=== PATIENT | female | born 1930 | race Caucasian/White ===

== ENCOUNTER 2017-01-17 19:08 | Inpatient (IN) | payer OTHER ==
[2017-01-17 19:42] LABS: BASOPHIL 1.1 % (0-2.0); EOSINOPHIL 0.1 % (0-4.5); MCH 31.4 pg (25.7-33.7); MCHC 34.2 g/dl (32.0-36.0); MEAN CELL VOLUME 91.7 fl (80-96); MEAN PLT VOLUME 8.3 fl (7.5-11.1); NEUTROPHILS 75.7 % (42.8-82.8); PLATELET COUNT 429 K/MM3 (134-434); RDW 12.9 % (11.6-15.6); WHITE BLOOD COUNT 10.8 K/mm3 (4.0-10.8)
--- NOTE | 2017-01-17 19:54 | PDOC ---
History of Present Illness - General History Source: Patient Exam Limitations: No Limitations - History of Present Illness Initial Comments: 01/17/17 20:55 Patient is a 86 year old female presenting to the ED s/p Fall that occurred 1 hour prior to arrival to ED. Patient reports feeling a sudden onset of dizziness followed by losing her balance causing her to fall 1 hour ago. Patient states the only medication she is currently on is for HTN, which she forgot to take today. Denies sweating, headache. Denies nausea, vomiting. Denies loss of consciousness , chest pain. Denies any other symptoms. PAST MEDICAL HISTORY: HTN PAST SURGICAL HISTORY: no significant history FAMILY HISTORY: no pertinent history SOCIAL HISTORY: Lives in [facility] assisted living and is Retired. Previous smoker (). No alcohol. No illicit drugs. MEDICATIONS: reviewed ALLERGIES: No allergies 01/17/17 21:57 <Chepe Serra - Last Filed: 01/17/17 21:57> - General History Source: Patient, Family Exam Limitations: No Limitations - History of Present Illness Initial Comments: A portion of this note was documented by scribe services under my direction. I have reviewed the details of the note, within reason, and agree with the documentation. The case summary and management plan written by me. 01/17/17 20:59 This is a 86-year-old female who had a fall at the [facility] and was transferred to this post fall. Patient said that she felt dizzy prior to the fall but was unable to describe the dizziness as a spinning sensation versus a passing out sensation. On arrival patient had a systolic blood pressure of 88 patient was given a 500 mL bolus with improvement of her blood pressure to systolic of 100 patient's EKG showed a junctional rhythm but otherwise no acute ST-T wave changes and an inferior wall NM. With some mild ST depression 1 and aVL. Patient has Q waves inferiorly but this most likely is the source of her elevated troponin Patient's chest x-ray showed no acute pathology. Patient had lab work done that showed a sodium of 128, a glucose of 167 and an elevated troponin of 9.5. Discussed with Dr. Mccauley patient will be admitted to [facility] cardiac ICU Patient here in the emergency room though is stable and denies any chest pain or shortness of breath or any other complaints at this time. When patient fell she did cut 2 of the fingers on her hand and sustained an elbow abrasion <Madhavi Sheffield I - Last Filed: 01/17/17 22:24> - General Chief Complaint: Lightheaded Stated Complaint: DIZZY,FALL Time Seen by Provider: 01/17/17 19:11 Past History <Chepe Serra - Last Filed: 01/17/17 21:57> - Past Medical History HTN: Yes - Psycho/Social/Smoking Cessation Hx Suicidal Ideation: No Smoking History: Former smoker Have you smoked in the past 12 months: No If you are a former smoker, when did you quit?: 1989 Information on smoking cessation initiated: No Hx Alcohol Use: No Drug/Substance Use Hx: No Substance Use Type: Alcohol <Madhavi Sheffield I - Last Filed: 01/17/17 22:24> - Past Medical History Allergies/Adverse Reactions: Allergies Allergy/AdvReac Type Severity Reaction Status Date / Time No Known Allergies Allergy Verified 01/17/17 19:09 Home Medications: Ambulatory Orders Aspirin [ASA -] 0 mg PO DAILY 01/17/17 Atenolol [Tenormin -] 0 mg PO DAILY 01/17/17 Diltiazem HCl [Cartia Xt] 0 mg PO DAILY 01/17/17 Levothyroxine [Synthroid -] 0 mcg PO DAILY 01/17/17 Pravastatin Sodium 0 mg PO DAILY 01/17/17 Review of Systems - Review of Systems Able to Perform ROS?: Yes Comments:: 01/17/17 20:55 General: No fevers or chills, no weakness, no weight loss HEENT: No change in vision. No sore throat, No ear pain CardioVascular: No chest pain or shortness of breath Respiratory:No cough, or wheezing. Gastrointestinal: no nausea, vomiting, diarrhea or constipation, No rectal bleeding Genitourinary: No dysuria, hematuria, or frequency Musculoskeletal: + Ringer finger laceration. + Middle finger laceration. No joint or muscle pain or swelling Neurologic: No headache, vertigo, dizziness or loss of consciousness Psychiatric: nor depression Skin: No rashes or easy bruising Endocrine: no increased thirst or abnormal weight change Allergic: no skin or latex allergy All other systems reviewed and normal All Other Systems: Reviewed and Negative <Chepe Serra - Last Filed: 01/17/17 21:57> *Physical Exam - Vital Signs Last Vital Signs Temp Pulse Resp BP Pulse Ox 100.7 F H 84 18 100/65 96 01/17/17 19:41 01/17/17 20:32 01/17/17 20:32 01/17/17 20:32 01/17/17 20:32 - Physical Exam Comments: 01/17/17 20:57 GENERAL: The patient is awake, alert, and fully oriented, in no acute distress. HEAD: Normal with no signs of trauma. EYES: Pupils equal, round and reactive to light, extraocular movements intact, sclera anicteric, conjunctiva clear. EXTREMITIES: + Ring finger 1 cm laceration. Middle phalanx palmar side. No active bleeding. + Middle finger 1 cm laceration. Middle phalanx palmar side. Normal range of motion, no edema. NEUROLOGICAL: Normal speech, normal gait. PSYCH: Normal mood, normal affect. SKIN: Warm, Dry, normal turgor, no rashes or lesions noted. <Chepe Serra - Last Filed: 01/17/17 21:57> - Vital Signs Last Vital Signs Temp Pulse Resp BP Pulse Ox 100.7 F H 84 18 86/55 96 01/17/17 19:41 01/17/17 19:08 01/17/17 19:08 01/17/17 19:08 01/17/17 19:08 <Madhavi Sheffield I - Last Filed: 01/17/17 22:24> ED Treatment Course - LABORATORY CBC & Chemistry Diagram: 01/17/17 19:20 01/17/17 19:20 - ADDITIONAL ORDERS Additional order review: Laboratory Results 01/17/17 19:20 Sodium 128 L Potassium 4.0 Chloride 97 L Carbon Dioxide 20 L Anion Gap 11 BUN 40 H Creatinine 2.0 H Creat Clearance w eGFR 23.51 Random Glucose 167 H Calcium 9.5 Total Bilirubin 0.8 AST 71 H ALT 30 Alkaline Phosphatase 91 Creatine Kinase 342 H Creatine Kinase Index 10.5 H* CK-MB (CK-2) 36.2 H Troponin I 9.50 H* Total Protein 6.7 Albumin 4.1 01/17/17 19:20 RBC 4.55 MCV 91.7 MCHC 34.2 RDW 12.9 MPV 8.3 Neutrophils % 75.7 Lymphocytes % 14.8 Monocytes % 8.3 Eosinophils % 0.1 Basophils % 1.1 <Chepe Serra - Last Filed: 01/17/17 21:57> - LABORATORY CBC & Chemistry Diagram: 01/17/17 19:20 01/17/17 19:20 - ADDITIONAL ORDERS Additional order review: 01/17/17 19:20 RBC 4.55 MCV 91.7 MCHC 34.2 RDW 12.9 MPV 8.3 Neutrophils % 75.7 Lymphocytes % 14.8 Monocytes % 8.3 Eosinophils % 0.1 Basophils % 1.1 - RADIOLOGY Radiology Studies Ordered: Category Date Time Status HEAD CT WITHOUT CONTRAST [CT] Stat CT Scan 01/17/17 19:28 Ordered CHEST X-RAY PORTABLE* [RAD] Stat Radiology 01/17/17 19:29 Ordered <Madhavi Sheffield I - Last Filed: 01/17/17 22:24> Medical Decision Making - Critical Care Time Total Critical Care Time (minutes): 45 Critical Care Statement: The care of this patient involved high complexity decision making to prevent further life threatening deterioration of the patient 's condition and/or to evaluate & treat vital organ system(s) failure or risk of failure. <Madhavi Sheffield I - Last Filed: 01/17/17 22:24> *DC/Admit/Observation/Transfer - Attestations Scribe Attestion: 01/17/17 20:58 Documentation prepared by Chepe Serra, acting as medical economics consultant for Madhavi Sheffield MD. <Chepe Serra - Last Filed: 01/17/17 21:57> - Discharge Dispostion Admit: Yes <Madhavi Sheffield I - Last Filed: 01/17/17 22:24> Diagnosis at time of Disposition: Acute NM Qualifiers: Myocardial infarction ST status: non-ST elevation myocardial infarction Qualified Code(s): I21.4 - Non-ST elevation (NSTEMI) myocardial infarction - Discharge Dispostion Condition at time of disposition: Stable
[2017-01-17 19:58] LABS: ALBUMIN 4.1 g/dl (3.5-5.0); ALK PHOS 91 U/L (32-92); ANION GAP 11 (8-16); BILIRUBIN,TOTAL 0.8 mg/dl (0.2-1.0); CALCIUM 9.5 mg/dl (8.4-10.2); CO2 20 mmol/L (22-28); CPK 342 IU/L (26-192); GLUCOSE,RANDOM 167 mg/dl (74-106); SGOT/AST 71 U/L (10-42); SGPT/ALT 30 U/L (10-40); TOT PROT 6.7 g/dl (6.4-8.3)
[2017-01-17] MEDS ORDERED: SODIUM CHLORIDE 500 ML IV STA (20:58)
[2017-01-17] MEDS ORDERED: HEPARIN INFUSION - 500 ML IVPB ONE (21:41)
[2017-01-17] MEDS ORDERED: ASPIRIN 81 MG CHEWABLE TABLETS ONE (21:41)
[2017-01-17 22:05] LABS: INR 1.01 (0.82-1.09); PROTHROMBIN TIME (PATIENT) 11.3 SEC (10.2-13.0)
--- NOTE | 2017-01-17 22:11 | HP ---
Admitting History and Physical - Admission History Source: Family Member Limitations to Obtaining History: Dementia <Madhavi Sheffield I - Last Filed: 01/17/17 23:42> - Admission Chief Complaint: fever, and fall, weakness History of Present Illness: 86 yo female who recently moved from [place], was seen by me for the first time 2 days ago for medication refills and complaints of rhinorrhea.. The patient ran out of her medications approximately 1 week ago. Her medications consist of Atenolol 50 mg daiy, Cartia XT 240 mg daily, Pravastatin 40 mg daily , and Synthroid 88 mcg daily. I saw the patient again today for complaints of not feeling well, lightheadedness and vomiting. The blood pressure during my examination was 140/80 mm hg and I advised the patient to take her daily dose of Atenolol. Later on during the afternoon the patient fell and ambulance was activated. There was no h/o head injury or loss of consciousness. In the ER the patient was found to be hypotensive with fever and elevated troponins. 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 Cardiovascular: Yes: HTN Gastrointestinal: Yes: Other (vomiting billious contents) Reproductive: Yes: Postmenopausal Musculoskeletal: Yes: Osteoarthritis Endocrine: Yes: Hypothyroidism - Past Surgical History Past Surgical History: Yes: None - Smoking History Smoking history: Former smoker Have you smoked in the past 12 months: No If you are a former smoker, when did you quit?: 1989 - Alcohol/Substance Use Hx Alcohol Use: No - Social History ADL: Support Services ([facility]) <Kathy Mccauley - Last Filed: 01/18/17 13:56> Home Medications <Madhavi Sheffield I - Last Filed: 01/17/17 23:42> <Kathy Mccauley - Last Filed: 01/18/17 13:56> - Allergies Allergies/Adverse Reactions: Allergies Allergy/AdvReac Type Severity Reaction Status Date / Time No Known Allergies Allergy Verified 01/17/17 19:09 - Home Medications Home Medications: Ambulatory Orders Aspirin [ASA -] 0 mg PO DAILY 01/17/17 Atenolol [Tenormin -] 0 mg PO DAILY 01/17/17 Diltiazem HCl [Cartia Xt] 0 mg PO DAILY 01/17/17 Levothyroxine [Synthroid -] 0 mcg PO DAILY 01/17/17 Pravastatin Sodium 0 mg PO DAILY 01/17/17 Family Disease History - Family Disease History Family History: Unable to Obtain <Kathy Mccauley - Last Filed: 01/18/17 13:56> Review of Systems - Review of Systems Constitutional: reports: Fever, Lethargy Eyes: reports: No Symptoms HENT: reports: Other (rhinorrhea) Neck: reports: No Symptoms Cardiovascular: reports: Other (weakness) Respiratory: reports: No Symptoms Gastrointestinal: reports: Vomiting Genitourinary: reports: No Symptoms Musculoskeletal: reports: Muscle Weakness Integumentary: reports: No Symptoms Neurological: reports: Dizziness Psychiatric: reports: Other (forgetful) <Kathy Mccauley - Last Filed: 01/18/17 13:56> Physical Examination Vital Signs: Vital Signs Temperature 100.7 F H 01/17/17 19:41 Pulse Rate 85 01/17/17 22:37 Respiratory Rate 20 01/17/17 22:37 Blood Pressure 89/64 01/17/17 22:37 O2 Sat by Pulse Oximetry (%) 95 01/17/17 22:37 Labs: CBC, BMP 01/17/17 19:20 01/17/17 19:20 <Madhavi Sheffield I - Last Filed: 01/17/17 23:42> Vital Signs: Vital Signs Temperature 100.7 F H 01/17/17 19:41 Pulse Rate 84 01/17/17 21:17 Respiratory Rate 17 01/17/17 21:17 Blood Pressure 94/61 01/17/17 21:17 O2 Sat by Pulse Oximetry (%) 95 01/17/17 21:17 Constitutional: Yes: No Distress, Calm Eyes: Yes: Conjunctiva Clear, EOM Intact HENT: Yes: Atraumatic, Normocephalic Neck: Yes: Supple, Trachea Midline Respiratory: Yes: Regular, CTA Bilaterally Gastrointestinal: Yes: Normal Bowel Sounds, Soft ...Rectal Exam: Yes: Deferred Renal/: Yes: WNL Breast(s): Yes: WNL Extremities: No: Calf Tenderness Edema: No Integumentary: Yes: Other (solar hyperkeratosis) Neurological: Yes: Alert, Oriented Labs: CBC, BMP 01/17/17 19:20 01/17/17 19:20 <Kathy Mccauley - Last Filed: 01/18/17 13:56> Imaging - Results Chest X-ray: Other (AP film read by me, no pleural effusion, no infiltrate, no cardiomegaly) EKG: Other (Jan 14- Junctional rhythm at 83 b/min, Q in III, and V1, poor R wave progression, QRS axis at 0, non specific ST-T) <Kathy Mccauley - Last Filed: 01/18/17 13:56> Problem List - Problems (1) Acute SC Assessment/Plan: telemetry observation cariac enzymes serially EKG's serially ECHO in am Code(s): I21.3 - ST ELEVATION (STEMI) MYOCARDIAL INFARCTION OF [facility] SITE Qualifiers: Myocardial infarction ST status: non-ST elevation myocardial infarction Qualified Code(s): I21.4 - Non-ST elevation (NSTEMI) myocardial infarction (2) Fever Assessment/Plan: Tylenol, IV fluids Code(s): R50.9 - FEVER, UNSPECIFIED (3) HTN (hypertension) Assessment/Plan: developed hypotension while on Atenolol possibly due to fever or cardiac event Code(s): I10 - ESSENTIAL (PRIMARY) HYPERTENSION <Kathy Mccauley - Last Filed: 01/18/17 13:56>
[2017-01-17] MEDS ORDERED: ASPIRIN 81 MG CHEWABLE TABLETS PO ONE (22:18)
[2017-01-17] MEDS ORDERED: ATENOLOL 25 MG TABLET (FP) PO ONE (22:18)
[2017-01-17] MEDS ORDERED: METOPROLOL TARTRATE 25 MG TABLET (FP) PO ONE (22:24)
[2017-01-17] MEDS ORDERED: ATENOLOL 50 MG TABLET (FP) ONE (22:34)
--- NOTE | 2017-01-18 00:05 | CONSULT ---
Consult Consult Specialty:: Pulmonary critical care Reason for Consultation:: NSTEMI - History of Present Illness Chief Complaint: Dizziness History of Present Illness: Patient is a 86 year old female with h/o HTN who presented to [facility] ED after she sustained a fall (no LOC) and was brought in for evaluation. Pt reports sudden onset of dizziness prior to fall, also reports n/v couple of days ago. Initial labs notable for Troponin of 9.5, CK-MB 36, Na 128, Cr 2 ( unknown baseline). EKG with no ST elevations. Head CT negative. She was initially hypotensive with SBP of 80s, was given 500cc bolus of NS with improvement in her BP. Pt was given 81mg of ASA and transferred to [facility] ICU for further management. On arrival to ICU pt awake, in no distress with no complaints. Stable vital signs. Placed on supplemental O2. Repeat labs pending. 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 Cardio/Vascular: Yes: HTN - Alcohol/Substance Use Hx Alcohol Use: No - Smoking History Smoking history: Former smoker Have you smoked in the past 12 months: No If you are a former smoker, when did you quit?: 1989 Home Medications - Allergies Allergies/Adverse Reactions: Allergies Allergy/AdvReac Type Severity Reaction Status Date / Time No Known Allergies Allergy Verified 01/17/17 19:09 - Home Medications Home Medications: Ambulatory Orders Aspirin [ASA -] 0 mg PO DAILY 01/17/17 Atenolol [Tenormin -] 0 mg PO DAILY 01/17/17 Diltiazem HCl [Cartia Xt] 0 mg PO DAILY 01/17/17 Levothyroxine [Synthroid -] 0 mcg PO DAILY 01/17/17 Pravastatin Sodium 0 mg PO DAILY 01/17/17 Review of Systems - Review of Systems Cardiovascular: reports: No Symptoms Gastrointestinal: reports: Nausea, Vomiting Physical Exam Vital Signs: Vital Signs Temperature 100.7 F H 01/17/17 19:41 Pulse Rate 85 01/17/17 22:37 Respiratory Rate 20 01/17/17 22:37 Blood Pressure 89/64 01/17/17 22:37 O2 Sat by Pulse Oximetry (%) 95 01/17/17 22:37 Problem List - Problems (1) Acute DE Code(s): I21.3 - ST ELEVATION (STEMI) MYOCARDIAL INFARCTION OF [facility] SITE Qualifiers: Myocardial infarction ST status: non-ST elevation myocardial infarction Qualified Code(s): I21.4 - Non-ST elevation (NSTEMI) myocardial infarction Assessment/Plan NSTEMI Hyponatremia likely hypovolemic hyponatremia in the setting of decreased PO intake Hypothyroidism Renal insufficiency, Cr elevated at 2. Unknown baseline. Likely prerenal -cards consult in AM -daily ASA -daily statin -hold off on BB given relative hypotension -consider TTE -supplemental O2 -morphine for chest pain if need be -trend troponin -recheck BMP to f/u on Na and Cr post fluids -will check urine lytes and renal US if worsening renal function -restart synthroid in AM (confirm dose) -heparin SubQ for PPx -no indication for pepcid GOLD [facility] Critical Care time: 35 minutes
[2017-01-18 00:20] VITALS: BMI 23.1
[2017-01-18] MEDS ORDERED: HEPARIN NA (PORCINE) 5,000 UNITS/ML 1ML VIAL SQ SCH (00:45)
[2017-01-18] MEDS ORDERED: ATORVASTATIN CA 10 MG TABLET (FP) PO SCH ×2 (01:00→22:00)
[2017-01-18 02:01] LABS: ANION GAP 14 (8-16); CALCIUM 8.6 mg/dL (8.5-10.1); CO2 21 mmol/L (21-32); CREATININE 1.5 mg/dL (0.55-1.02); GLUCOSE,RANDOM 118 mg/dL (74-106)
[2017-01-18 02:38] LABS: TROPONIN I 8.03 ng/ml (0.00-0.05)
[2017-01-18] MEDS: HEPARIN NA (PORCINE) 5,000 UNITS/ML 1ML VIAL SQ SCH ×3 (02:53→21:30)
[2017-01-18] MEDS: ATORVASTATIN CA 10 MG TABLET (FP) PO SCH ×2 (02:53→21:46)
--- NOTE | 2017-01-18 07:28 | PN ---
Physical Exam: SUBJECTIVE: Patient seen and examined. Pleasant, comfortable, no complaints. OBJECTIVE: Vital Signs Period Temp Pulse Resp BP Sys/Gerber Pulse Ox Last 24 Hr 97.2 F-97.4 F 80-84 18-20 101-140/66-78 95 Intake & Output 01/15/17 01/16/17 01/17/17 01/18/17 23:59 23:59 23:59 23:59 Intake Total 100 Balance 100 Weight 64.949 kg 64.949 kg GENERAL: The patient is awake, alert, and fully oriented, in no acute distress. HEAD: Normal with no signs of trauma. EYES: PERRL, extraocular movements intact, sclera anicteric, conjunctiva clear. No ptosis. ENT: Ears normal, nares patent, oropharynx clear without exudates, moist mucous membranes. NECK: Trachea midline, full range of motion, supple. LUNGS: Breath sounds equal, clear to auscultation bilaterally, no wheezes, no crackles, no accessory muscle use. HEART: Regular rate and rhythm, S1, S2 without murmur, rub or gallop. ABDOMEN: Soft, nontender, nondistended, normoactive bowel sounds, no guarding, no rebound, no hepatosplenomegaly, no masses. EXTREMITIES: 2+ pulses, warm, well-perfused, no edema. NEUROLOGICAL: Cranial nerves II through XII grossly intact. Normal speech, gait not observed.Full strength in all extremities. PSYCH: Normal mood, normal affect. SKIN: Warm, dry, normal turgor, no rashes or lesions noted Laboratory Results - last 24 hr 01/18/17 01/18/17 01:00 01:00 Sodium 134 L Potassium 3.8 Chloride 99 Carbon Dioxide 21 Anion Gap 14 BUN 43 H Creatinine 1.5 H Random Glucose 118 H Calcium 8.6 Creatine Kinase 314 H Creatine Kinase Index 6.3 H* CK-MB (CK-2) 19.871 H Troponin I 8.03 H* Active Medications Generic Name Dose Route Start Last Admin Trade Name Freq PRN Reason Stop Dose Admin Atorvastatin Calcium 10 mg 01/18/17 02:30 01/18/17 02:53 Lipitor - PO 10 mg HS EDSON Administration Heparin Sodium (Porcine) 5,000 unit 01/18/17 02:30 01/18/17 02:53 Heparin - SQ 5,000 unit BID EDSON Administration Pneumococcal 13-Valent Conj Vacc 0.5 ml 01/18/17 00:20 Prevnar 13 Syringe - IM 01/18/17 00:21 .ONCE ONE EKG from last night: ACCELERATED JUNCTIONAL RHYTHM LEFT VENTRICULAR HYPERTROPHY WITH REPOLARIZATION ABNORMALITY POSSIBLE INFERIOR INFARCT EKG this AM: SINUS RHYTHM WITH 1ST DEGREE A-V BLOCK LEFT VENTRICULAR HYPERTROPHY WITH REPOLARIZATION ABNORMALITY INFERIOR INFARCT (CITED ON OR BEFORE 18-JAN-2017) ASSESSMENT/PLAN: Patient is a 86 year old female with h/o HTN who presented to [facility] ED after she sustained a fall (no LOC). Transferred to ICU for elevated troponins and abnormal EKG NSTEMI Hyponatremia likely hypovolemic hyponatremia in the setting of decreased PO intake Hypothyroidism Renal insufficiency, Cr elevated at 2. Unknown baseline. Likely prerenal HTN PLAN: CARDIOVASC: -Cardiology consult Dr. Matute -MICHELLE 81g -Statin 10mg - Metoprolol 25mg bid -ECHO unremarkable -supplemental O2 -Follow BMP -VTE prophylaxis Visit type - Emergency Visit Emergency Visit: No - New Patient This patient is new to me today: Yes Date on this admission: 01/18/17 - Critical Care Critical Care patient: Yes Total Critical Care Time (in minutes): 30 Critical Care Statement: The care of this patient involved high complexity decision making to prevent further life threatening deterioration of the patient 's condition and/or to evaluate & treat vital organ system(s) failure or risk of failure.
[2017-01-18] MEDS ORDERED: D5-1/2NS+10 MEQ KCL - 1,000 ML IV SCH (08:45)
[2017-01-18 09:13] LABS: ALBUMIN 3.3 g/dl (3.4-5.0); ANION GAP 13 (8-16); BILIRUBIN,TOTAL 0.8 mg/dL (0.2-1.0); CALCIUM 8.9 mg/dL (8.5-10.1); CO2 22 mmol/L (21-32); CREATININE 1.1 mg/dL (0.55-1.02); GLUCOSE,RANDOM 108 mg/dL (74-106); SGOT/AST 63 U/L (15-37); SGPT/ALT 32 U/L (12-78); TOT PROT 6.1 g/dl (6.4-8.2)
[2017-01-18 09:16] LABS: ALK PHOS 95 U/L (45-117); CPK 281 IU/L (26-192)
[2017-01-18 09:35] LABS: TROPONIN I 8.44 ng/ml (0.00-0.05)
--- NOTE | 2017-01-18 09:37 | EKG ---
Test Reason : Blood Pressure : / mmHG Vent. Rate : 082 BPM Atrial Rate : 082 BPM P-R Int : 000 ms QRS Dur : 084 ms QT Int : 400 ms P-R-T Axes : 011 -26 149 degrees QTc Int : 467 ms SINUS RHYTHM WITH 1ST DEGREE A-V BLOCK LEFT VENTRICULAR HYPERTROPHY WITH REPOLARIZATION ABNORMALITY INFERIOR INFARCT (CITED ON OR BEFORE 18-JAN-2017) ABNORMAL ECG Confirmed by CAROLINE MAYBERRY MD ([id number]) on 01/18/2017 9:36:34 AM Referred By: Confirmed By:CAROLINE MAYBERRY MD
[2017-01-18] MEDS: ASPIRIN 81 MG CHEWABLE TABLETS PO SCH (09:46)
--- NOTE | 2017-01-18 10:24 | EKG ---
Test Reason : Blood Pressure : / mmHG Vent. Rate : 083 BPM Atrial Rate : 070 BPM P-R Int : 000 ms QRS Dur : 082 ms QT Int : 418 ms P-R-T Axes : 000 002 129 degrees QTc Int : 491 ms ACCELERATED JUNCTIONAL RHYTHM LEFT VENTRICULAR HYPERTROPHY WITH REPOLARIZATION ABNORMALITY POSSIBLE INFERIOR INFARCT , AGE UNDETERMINED ABNORMAL ECG NO PREVIOUS ECGS AVAILABLE Confirmed by CAROLINE MAYBERRY MD ([id number]) on 01/18/2017 10:24:25 AM Referred By: DR ZARATE Confirmed By:CAROLINE MAYBERRY MD
[2017-01-18] MEDS ORDERED: PNEUMOC 13-VAL CONJ-DIP CRM/PF 0.5 ML DISP.SYRIN IM ONE (11:00)
--- NOTE | 2017-01-18 12:35 | PN ---
Teaching Attending Note Name of Resident: Tej Pereyra ATTENDING PHYSICIAN STATEMENT I saw and evaluated the patient. I reviewed the resident's note and discussed the case with the resident. I agree with the resident's findings and plan as documented. SUBJECTIVE: Patient seen and examined in the ICU. Awake and alert. Denies CP or SOB. Noted persistent elevation in Troponinm but slightly down trending. ECHO being performed at the bedside. OBJECTIVE: Intake & Output 01/15/17 01/16/17 01/17/17 01/18/17 23:59 23:59 23:59 23:59 Intake Total 100 Output Total 450 Balance -350 Weight 143 lb 3 oz 143 lb 3 oz Last Vital Signs Temp Pulse Resp BP Pulse Ox 97.8 F 82 21 119/75 97 01/18/17 10:00 01/18/17 12:00 01/18/17 12:00 01/18/17 12:00 01/18/17 09:00 Active Medications Aspirin (Asa -) 81 mg PO DAILY [facility] Last Admin: 01/18/17 09:46 Dose: 81 mg Atorvastatin Calcium (Lipitor -) 10 mg PO HS [facility] Last Admin: 01/18/17 02:53 Dose: 10 mg Heparin Sodium (Porcine) (Heparin -) 5,000 unit SQ BID [facility] Last Admin: 01/18/17 09:46 Dose: 5,000 unit Potassium Chloride/Dextrose/Sod Cl (D5-1/2ns+10 Meq Kcl -) 1,000 mls @ 42 mls/ hr IV ASDIR [facility] Last Admin: 01/18/17 09:03 Dose: 42 mls/hr Metoprolol Tartrate (Lopressor -) 25 mg PO BID [facility] GENERAL: awake, alert, and fully oriented, in no acute distress. HEAD: Normal with no signs of trauma. EYES: sclera anicteric, conjunctiva clear. No ptosis. ENT: Ears normal, nares patent, oropharynx clear without exudates, moist mucous membranes. NECK: Trachea midline, full range of motion, supple. LUNGS: Breath sounds equal, clear to auscultation bilaterally, no wheezes, no crackles, no accessory muscle use. HEART: Regular rate and rhythm, S1, S2 without murmur, rub or gallop. ABDOMEN: Soft, nontender, nondistended, normoactive bowel sounds, no guarding, no rebound, no hepatosplenomegaly, no masses. EXTREMITIES: 2+ pulses, warm, well-perfused, no edema. NEUROLOGICAL: AAO, Non-focal PSYCH: Normal mood, normal affect. SKIN: Warm, dry, normal turgor, no rashes or lesions noted Laboratory Results - last 24 hr 01/17/17 01/17/17 01/17/17 19:20 19:20 21:37 WBC 10.8 RBC 4.55 Hgb 14.3 Hct 41.7 MCV 91.7 MCH 31.4 MCHC 34.2 RDW 12.9 Plt Count 429 MPV 8.3 Neutrophils % 75.7 Lymphocytes % 14.8 Monocytes % 8.3 Eosinophils % 0.1 Basophils % 1.1 PT with INR INR PTT (Actin FS) 26.7 Sodium 128 L Potassium 4.0 Chloride 97 L Carbon Dioxide 20 L Anion Gap 11 BUN 40 H Creatinine 2.0 H Creat Clearance w eGFR 23.51 Random Glucose 167 H Calcium 9.5 Total Bilirubin 0.8 AST 71 H ALT 30 Alkaline Phosphatase 91 Creatine Kinase 342 H Creatine Kinase Index 10.5 H* CK-MB (CK-2) 36.2 H Troponin I 9.50 H* Total Protein 6.7 Albumin 4.1 01/17/17 01/18/17 01/18/17 21:37 01:00 01:00 WBC RBC Hgb Hct MCV MCH MCHC RDW Plt Count MPV Neutrophils % Lymphocytes % Monocytes % Eosinophils % Basophils % PT with INR 11.3 INR 1.01 PTT (Actin FS) Sodium 134 L Potassium 3.8 Chloride 99 Carbon Dioxide 21 Anion Gap 14 BUN 43 H Creatinine 1.5 H Creat Clearance w eGFR Random Glucose 118 H Calcium 8.6 Total Bilirubin AST ALT Alkaline Phosphatase Creatine Kinase 314 H Creatine Kinase Index 6.3 H* CK-MB (CK-2) 19.871 H Troponin I 8.03 H* Total Protein Albumin 01/18/17 08:35 WBC RBC Hgb Hct MCV MCH MCHC RDW Plt Count MPV Neutrophils % Lymphocytes % Monocytes % Eosinophils % Basophils % PT with INR INR PTT (Actin FS) Sodium 135 L Potassium 3.7 Chloride 100 Carbon Dioxide 22 Anion Gap 13 BUN 36 H Creatinine 1.1 H D Creat Clearance w eGFR 46.88 Random Glucose 108 H Calcium 8.9 Total Bilirubin 0.8 AST 63 H ALT 32 Alkaline Phosphatase 95 Creatine Kinase 281 H Creatine Kinase Index 5.0 CK-MB (CK-2) 14.200 H Troponin I 8.44 H* Total Protein 6.1 L Albumin 3.3 L IMP: NSTEMI Hyponatremia likely hypovolemic hyponatremia in the setting of decreased PO intake Hypothyroidism Renal insufficiency, Cr elevated at 2. Unknown baseline. Likely prerenal HTN PLAN: -Cardiology consult -ASA -Statin -ECHO -supplemental O2 -Follow BMP -VTE prophylaxis Dr Padron Critical care time spent in reviewing chart, evaluating patient and formulating plan - 35 minutes.
--- NOTE | 2017-01-18 13:54 | PN ---
Progress Note, Physician Chief Complaint: Patient has no complaints, no fever since admission, denies chest pain, feels stronger, hungry. History of Present Illness: 86 yo female admitted for acute PR - Current Medication List Current Medications: Active Medications Aspirin (Asa -) 81 mg PO DAILY [facility] Last Admin: 01/18/17 09:46 Dose: 81 mg Atorvastatin Calcium (Lipitor -) 10 mg PO HS [facility] Last Admin: 01/18/17 02:53 Dose: 10 mg Heparin Sodium (Porcine) (Heparin -) 5,000 unit SQ BID [facility] Last Admin: 01/18/17 09:46 Dose: 5,000 unit Potassium Chloride/Dextrose/Sod Cl (D5-1/2ns+10 Meq Kcl -) 1,000 mls @ 42 mls/ hr IV ASDIR [facility] Last Admin: 01/18/17 09:03 Dose: 42 mls/hr Metoprolol Tartrate (Lopressor -) 25 mg PO BID [facility] - Objective Vital Signs: Vital Signs Temperature 97.8 F 01/18/17 10:00 Pulse Rate 82 01/18/17 12:00 Respiratory Rate 21 01/18/17 12:00 Blood Pressure 119/75 01/18/17 12:00 O2 Sat by Pulse Oximetry (%) 97 01/18/17 12:55 Constitutional: Yes: No Distress, Calm Eyes: Yes: Conjunctiva Clear, EOM Intact HENT: Yes: Atraumatic, Normocephalic Neck: Yes: Supple, Trachea Midline Cardiovascular: Yes: Regular Rate and Rhythm, S1, S2 Respiratory: Yes: Regular, CTA Bilaterally Gastrointestinal: Yes: Normal Bowel Sounds, Soft, Abdomen, Obese. No: Hepatomegaly, Splenomegaly Musculoskeletal: Yes: Muscle Weakness Extremities: No: Calf Tenderness Edema: No Neurological: Yes: Alert, Oriented Psychiatric: Yes: Alert, Oriented Labs: CBC, BMP 01/18/17 08:35 INR, PTT INR 1.01 (0.82-1.09) 01/17/17 21:37 Problem List - Problems (1) Acute PR Assessment/Plan: admitted to ICU cardiac enzymes serially EKG's serially ECHO showing no motility defect, dilatation of the left atrium, LVH EKG today showing 1st AV block, LVH, Junctional rhythm, Q in III, QRS axis at - 30, nonspecific ST-T Code(s): I21.3 - ST ELEVATION (STEMI) MYOCARDIAL INFARCTION OF [facility] SITE Qualifiers: Myocardial infarction ST status: non-ST elevation myocardial infarction Qualified Code(s): I21.4 - Non-ST elevation (NSTEMI) myocardial infarction (2) Fever Assessment/Plan: Tylenol, IV fluids, will discontinue fluids tonight Code(s): R50.9 - FEVER, UNSPECIFIED (3) HTN (hypertension) Assessment/Plan: developed hypotension while on Atenolol possibly due to fever or cardiac event\ will start short acting Metoprolol Code(s): I10 - ESSENTIAL (PRIMARY) HYPERTENSION
[2017-01-18] MEDS: METOPROLOL TARTRATE 25 MG TABLET (FP) PO SCH ×2 (14:06→21:29)
--- NOTE | 2017-01-18 14:08 | CON.CARD ---
Consult Consult Specialty:: Cardiology Referred by:: Kathy Mccauley MD Reason for Consultation:: NSTEMI - History of Present Illness Chief Complaint: Cardiology History of Present Illness: 86 yo female h/o HTN, chol, hypothyroidism who recently moved from [place] and ran out of her medications approximately 1 week ago. Her medications consist of Atenolol 50 mg daiy, Cartia XT 240 mg daily, Pravastatin 40 mg daily, and Synthroid 88 mcg daily presented to [facility] ED after she sustained a fall (no LOC), reported sudden onset of dizziness prior to fall, also reports n/v couple of days ago, reports fatigue last 3 days. Initial labs notable for Troponin of 9.5, CK-MB 36, Na 128, Cr 2 (unknown baseline). EKG with no ST elevations. Head CT negative. She was initially hypotensive with SBP of 80s, was given 500cc bolus of NS with improvement in her BP. Pt was given 81mg of ASA and transferred to [facility] ICU for further management. She denies chest pain, dyspnea, near or true syncope, palpitations, orthopnea, PND or LE edema. 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 Cardio/Vascular: Yes: HTN Gastrointestinal: Yes: Other (vomiting billious contents) Musculoskeletal: Yes: Osteoarthritis Endocrine: Yes: Hypothyroidism - Past Surgical History Past Surgical History: Yes: None - Alcohol/Substance Use Hx Alcohol Use: No - Smoking History Smoking history: Former smoker Have you smoked in the past 12 months: No If you are a former smoker, when did you quit?: 1989 - Social History ADL: Support Services ([facility]) Home Medications - Allergies Allergies/Adverse Reactions: Allergies Allergy/AdvReac Type Severity Reaction Status Date / Time No Known Allergies Allergy Verified 01/17/17 19:09 - Home Medications Home Medications: Ambulatory Orders Aspirin [ASA -] 0 mg PO DAILY 01/17/17 Atenolol [Tenormin -] 0 mg PO DAILY 01/17/17 Diltiazem HCl [Cartia Xt] 0 mg PO DAILY 01/17/17 Levothyroxine [Synthroid -] 0 mcg PO DAILY 01/17/17 Pravastatin Sodium 0 mg PO DAILY 01/17/17 Review of Systems - Review of Systems Constitutional: reports: Weakness Vital Signs: Vital Signs Temperature 98.5 F 01/18/17 14:00 Pulse Rate 84 01/18/17 14:00 Respiratory Rate 19 01/18/17 14:00 Blood Pressure 127/68 01/18/17 14:00 O2 Sat by Pulse Oximetry (%) 97 01/18/17 12:55 Constitutional: Yes: No Distress, Calm, Thin Neck: Yes: Supple Respiratory: Yes: Regular, Diminished Gastrointestinal: Yes: Normal Bowel Sounds, Soft Cardiovascular: Yes: Regular Rate and Rhythm JVD: No Carotid Bruit: No Heart Sounds: Yes: S1, S2 Edema: No - Other Data Labs, Other Data: CBC, BMP 01/18/17 08:35 INR, PTT INR 1.01 (0.82-1.09) 01/17/17 21:37 Troponin, BNP 01/18/17 01/18/17 01:00 08:35 Troponin I 8.03 H* 8.44 H* Troponin, BNP 01/18/17 01/18/17 01:00 08:35 Troponin I 8.03 H* 8.44 H* SR LVH Echo: Report Reviewed Ejection Fraction %: LVEF > or = 40 % Imaging - Results Chest X-ray: Report Reviewed (NAD) Cat Scan: Report Reviewed (HCT: No acute changes) Problem List - Problems (1) HTN (hypertension) Code(s): I10 - ESSENTIAL (PRIMARY) HYPERTENSION (2) Coronary artery disease Code(s): I25.10 - ATHSCL HEART DISEASE OF [place] CORONARY ARTERY W/O ANG PCTRS Qualifiers: Coronary Disease-Associated Artery/Lesion type: [place] artery [place] vs. transplanted heart: [place] heart Associated angina: with unstable angina Qualified Code(s): I25.110 - Atherosclerotic heart disease of [place] coronary artery with unstable angina pectoris (3) Non-STEMI (non-ST elevated myocardial infarction) Code(s): I21.4 - NON-ST ELEVATION (NSTEMI) MYOCARDIAL INFARCTION (4) Hyperlipidemia Code(s): E78.5 - HYPERLIPIDEMIA, UNSPECIFIED Qualifiers: Hyperlipidemia type: pure hypercholesterolemia Qualified Code(s): E78.00 - Pure hypercholesterolemia, unspecified; E78.0 - Pure hypercholesterolemia (5) Hypothyroidism Code(s): E03.9 - HYPOTHYROIDISM, UNSPECIFIED Qualifiers: Hypothyroidism type: unspecified Qualified Code(s): E03.9 - Hypothyroidism, unspecified Assessment/Plan 01/18/2017 Echo: Mild cLVH, normal LV fxn, mild MR and TR 1. CAD post NSTEMI 2. Hyponatremia likely hypovolemic hyponatremia in the setting of decreased PO intake 3. Hypothyroidism 4. Acute on CKD kidney injury (pre-renal) improving 5. HTN/HCVD 6. Hyperlipidemia PLAN: 1. ASA 81 qd, Plavix 75 qd, Lopressor 25 bid, Lipitor 10 qd, check TSH and lipid panel 2. Trops have peaked, pharmacologic stress testing to evaluate severity of CAD, f/u renal fxn 3. Thank you for consultative opportunity
[2017-01-18 15:52] LABS: CHOLESTEROL 211 mg/dL (50-200)
[2017-01-18 15:59] LABS: THYROID STIMULATING HORMONE 6.85 uIU/ml (0.358-3.74)
[2017-01-18] MEDS: CLOPIDOGREL BISULFATE 75 MG TABLET (FP) PO SCH (17:22)
[2017-01-19 06:12] LABS: MCH 31.6 pg (25.7-33.7); MCHC 34.1 g/dl (32.0-36.0); MEAN CELL VOLUME 92.7 fl (80-96); MEAN PLT VOLUME 8.4 fl (7.5-11.1); PLATELET COUNT 336 K/MM3 (134-434); RDW 13.8 % (11.6-15.6); WHITE BLOOD COUNT 7.8 K/mm3 (4.0-10.0)
[2017-01-19] MEDS: METOPROLOL TARTRATE 25 MG TABLET (FP) PO SCH ×2 (09:16→22:52)
[2017-01-19] MEDS: HEPARIN NA (PORCINE) 5,000 UNITS/ML 1ML VIAL SQ SCH ×2 (09:16→22:52)
[2017-01-19] MEDS: CLOPIDOGREL BISULFATE 75 MG TABLET (FP) PO SCH (09:16)
[2017-01-19] MEDS: ASPIRIN 81 MG CHEWABLE TABLETS PO SCH (09:16)
--- NOTE | 2017-01-19 09:59 | PN ---
Progress Note (short form) - Note Progress Note: Patient seen and examined in the ICU. Sleeping but easily arousable. Denies CP or SOB. ECHO noted. OBJECTIVE: Intake & Output 01/16/17 01/17/17 01/18/17 01/19/17 23:59 23:59 23:59 23:59 Intake Total 860 126 Output Total 1750 Balance -890 126 Weight 143 lb 3 oz 143 lb 3 oz 137 lb 3 oz Last Vital Signs Temp Pulse Resp BP Pulse Ox 97.5 F L 79 26 H 102/79 97 01/19/17 06:00 01/19/17 08:00 01/19/17 08:00 01/19/17 08:00 01/18/17 20:48 Active Medications Aspirin (Asa -) 81 mg PO DAILY [facility] Last Admin: 01/19/17 09:16 Dose: 81 mg Atorvastatin Calcium (Lipitor -) 10 mg PO HS [facility] Last Admin: 01/18/17 21:46 Dose: 10 mg Clopidogrel Bisulfate (Plavix -) 75 mg PO DAILY [facility] Last Admin: 01/19/17 09:16 Dose: 75 mg Heparin Sodium (Porcine) (Heparin -) 5,000 unit SQ BID [facility] Last Admin: 01/19/17 09:16 Dose: 5,000 unit Metoprolol Tartrate (Lopressor -) 25 mg PO BID [facility] Last Admin: 01/19/17 09:16 Dose: 25 mg GENERAL: awake, alert, and fully oriented, in no acute distress. HEAD: Normal with no signs of trauma. EYES: sclera anicteric, conjunctiva clear. No ptosis. ENT: Ears normal, nares patent, oropharynx clear without exudates, moist mucous membranes. NECK: Trachea midline, full range of motion, supple. LUNGS: Breath sounds equal, clear to auscultation bilaterally, no wheezes, no crackles, no accessory muscle use. HEART: Regular rate and rhythm, S1, S2 without murmur, rub or gallop. ABDOMEN: Soft, nontender, nondistended, normoactive bowel sounds, no guarding, no rebound, no hepatosplenomegaly, no masses. EXTREMITIES: 2+ pulses, warm, well-perfused, no edema. NEUROLOGICAL: AAO, Non-focal PSYCH: Normal mood, normal affect. SKIN: Warm, dry, normal turgor, no rashes or lesions noted Laboratory Results - last 24 hr 01/18/17 01/19/17 08:35 05:00 WBC 7.8 RBC 4.15 Hgb 13.1 Hct 38.4 MCV 92.7 MCH 31.6 MCHC 34.1 RDW 13.8 Plt Count 336 MPV 8.4 Sodium 135 L Potassium 3.7 Chloride 100 Carbon Dioxide 22 Anion Gap 13 BUN 36 H Creatinine 1.1 H D Creat Clearance w eGFR 46.88 Random Glucose 108 H Calcium 8.9 Total Bilirubin 0.8 AST 63 H ALT 32 Alkaline Phosphatase 95 Creatine Kinase 281 H Creatine Kinase Index 5.0 CK-MB (CK-2) 14.200 H Troponin I 8.44 H* Total Protein 6.1 L Albumin 3.3 L Triglycerides 218 H Cholesterol 211 H Total LDL Cholesterol 105 H HDL Cholesterol 65 H TSH 6.85 H IMP: NSTEMI Hyponatremia likely hypovolemic hyponatremia in the setting of decreased PO intake Hypothyroidism Renal insufficiency, Cr elevated at 2. Unknown baseline. Likely prerenal HTN PLAN: -Cardiology consult noted -> Will need Stress Mibi -ASA / Plavix -Statin -supplemental O2 -PO as tolerated -Cardiac telemetry monitoring Dr Padron Critical care time spent in reviewing chart, evaluating patient and formulating plan - 35 minutes.
[2017-01-19] MEDS ORDERED: ATORVASTATIN CA 10 MG TABLET (FP) PO SCH (18:32)
--- NOTE | 2017-01-19 20:30 | PN ---
Progress Note, Physician Chief Complaint: Patient has no complaints, no fever since admission, denies chest pain, feels stronger and hungry, denies chest pain and dyspnea. - Current Medication List Current Medications: Active Medications Aspirin (Asa -) 81 mg PO DAILY [facility] Last Admin: 01/19/17 09:16 Dose: 81 mg Atorvastatin Calcium (Lipitor -) 40 mg PO HS [facility] Clopidogrel Bisulfate (Plavix -) 75 mg PO DAILY [facility] Last Admin: 01/19/17 09:16 Dose: 75 mg Heparin Sodium (Porcine) (Heparin -) 5,000 unit SQ BID [facility] Last Admin: 01/19/17 09:16 Dose: 5,000 unit Levothyroxine Sodium (Synthroid -) 100 mcg PO DAILY@0700 [facility] Metoprolol Tartrate (Lopressor -) 25 mg PO BID [facility] Last Admin: 01/19/17 09:16 Dose: 25 mg - Objective Vital Signs: Vital Signs Temperature 98.6 F 01/19/17 18:00 Pulse Rate 80 01/19/17 18:00 Respiratory Rate 17 01/19/17 18:00 Blood Pressure 111/69 01/19/17 18:00 O2 Sat by Pulse Oximetry (%) 97 01/19/17 10:00 Constitutional: Yes: No Distress, Calm Eyes: Yes: Conjunctiva Clear, EOM Intact HENT: Yes: Atraumatic, Normocephalic Neck: Yes: Supple, Trachea Midline Cardiovascular: Yes: Regular Rate and Rhythm, S1, S2 Respiratory: Yes: Regular, CTA Bilaterally Gastrointestinal: Yes: Normal Bowel Sounds, Soft, Abdomen, Obese. No: Hepatomegaly, Splenomegaly ...Rectal Exam: Yes: Deferred Breast(s): Yes: WNL Extremities: No: Calf Tenderness Edema: No Peripheral Pulses WNL: Yes Neurological: Yes: Alert, Oriented Psychiatric: Yes: Alert, Oriented Labs: CBC, BMP 01/19/17 05:00 01/18/17 08:35 INR, PTT INR 1.01 (0.82-1.09) 01/17/17 21:37 Problem List - Problems (1) Acute [place] Assessment/Plan: admitted to ICU cardiac enzymes in am EKG in am ECHO showing no motility defect, dilatation of the left atrium, LVH Code(s): I21.3 - ST ELEVATION (STEMI) MYOCARDIAL INFARCTION OF [facility] SITE Qualifiers: Myocardial infarction ST status: non-ST elevation myocardial infarction Qualified Code(s): I21.4 - Non-ST elevation (NSTEMI) myocardial infarction (2) HTN (hypertension) Assessment/Plan: developed hypotension while on Atenolol possibly due to fever or cardiac event\ will start short acting Metoprolol Code(s): I10 - ESSENTIAL (PRIMARY) HYPERTENSION (3) Hypothyroidism Assessment/Plan: increase Synthroid to 100 mcg daily Code(s): E03.9 - HYPOTHYROIDISM, UNSPECIFIED Qualifiers: Hypothyroidism type: unspecified Qualified Code(s): E03.9 - Hypothyroidism, unspecified (4) Hyperlipidemia Assessment/Plan: Lipitor 40 mg daily add fatty acids Code(s): E78.5 - HYPERLIPIDEMIA, UNSPECIFIED Qualifiers: Hyperlipidemia type: pure hypercholesterolemia Qualified Code(s): E78.00 - Pure hypercholesterolemia, unspecified; E78.0 - Pure hypercholesterolemia
[2017-01-19] MEDS: ATORVASTATIN CA 40 MG TABLET (FP) PO SCH (22:52)
[2017-01-20] MEDS: LEVOTHYROXINE NA 100 MCG TABLET (FP) PO SCH (06:48)
[2017-01-20 07:24] LABS: ALBUMIN 3.5 g/dl (3.4-5.0); ALK PHOS 115 U/L (45-117); ANION GAP 10 (8-16); BILIRUBIN,TOTAL 0.5 mg/dL (0.2-1.0); CO2 27 mmol/L (21-32); CPK 87 IU/L (26-192); CREATININE 0.9 mg/dL (0.55-1.02); GLUCOSE,RANDOM 100 mg/dL (74-106); SGOT/AST 41 U/L (15-37); SGPT/ALT 40 U/L (12-78); TOT PROT 6.4 g/dl (6.4-8.2)
[2017-01-20 07:27] LABS: TROPONIN I 3.88 ng/ml (0.00-0.05)
[2017-01-20 07:34] LABS: MAGNESIUM 2.2 mg/dL (1.8-2.4)
[2017-01-20] MEDS: CLOPIDOGREL BISULFATE 75 MG TABLET (FP) PO SCH (09:19)
[2017-01-20] MEDS: ASPIRIN 81 MG CHEWABLE TABLETS PO SCH (09:19)
[2017-01-20] MEDS: HEPARIN NA (PORCINE) 5,000 UNITS/ML 1ML VIAL SQ SCH ×2 (09:19→21:19)
[2017-01-20] MEDS: METOPROLOL TARTRATE 25 MG TABLET (FP) PO SCH ×2 (09:19→21:19)
--- NOTE | 2017-01-20 09:31 | PN ---
Progress Note (short form) - Note Progress Note: Patient seen and examined in the ICU. Awake and alert. Denies CP or SOB. OBJECTIVE: Intake & Output 01/17/17 01/18/17 01/19/17 01/20/17 23:59 23:59 23:59 23:59 Intake Total 860 906 Output Total 1750 Balance -890 906 Weight 143 lb 3 oz 143 lb 3 oz 137 lb 3 oz 138 lb 10.732 oz Last Vital Signs Temp Pulse Resp BP Pulse Ox 98.6 F 72 18 168/86 97 01/20/17 06:00 01/20/17 06:00 01/20/17 06:00 01/20/17 06:00 01/19/17 20:00 Active Medications Aspirin (Asa -) 81 mg PO DAILY [facility] Last Admin: 01/20/17 09:19 Dose: 81 mg Atorvastatin Calcium (Lipitor -) 40 mg PO HS [facility] Last Admin: 01/19/17 22:52 Dose: 40 mg Clopidogrel Bisulfate (Plavix -) 75 mg PO DAILY [facility] Last Admin: 01/20/17 09:19 Dose: 75 mg Heparin Sodium (Porcine) (Heparin -) 5,000 unit SQ BID [facility] Last Admin: 01/20/17 09:19 Dose: 5,000 unit Levothyroxine Sodium (Synthroid -) 100 mcg PO DAILY@0700 [facility] Last Admin: 01/20/17 06:48 Dose: 100 mcg Metoprolol Tartrate (Lopressor -) 25 mg PO BID [facility] Last Admin: 01/20/17 09:19 Dose: 25 mg GENERAL: awake, alert, and fully oriented, in no acute distress. HEAD: Normal with no signs of trauma. EYES: sclera anicteric, conjunctiva clear. No ptosis. ENT: Ears normal, nares patent, oropharynx clear without exudates, moist mucous membranes. NECK: Trachea midline, full range of motion, supple. LUNGS: Breath sounds equal, clear to auscultation bilaterally, no wheezes, no crackles, no accessory muscle use. HEART: Regular rate and rhythm, S1, S2 without murmur, rub or gallop. ABDOMEN: Soft, nontender, nondistended, normoactive bowel sounds, no guarding, no rebound, no hepatosplenomegaly, no masses. EXTREMITIES: 2+ pulses, warm, well-perfused, no edema. NEUROLOGICAL: AAO, Non-focal PSYCH: Normal mood, normal affect. SKIN: Warm, dry, normal turgor, no rashes or lesions noted Laboratory Results - last 24 hr 01/20/17 05:00 Sodium 144 Potassium 4.0 Chloride 107 Carbon Dioxide 27 D Anion Gap 10 BUN 19 H D Creatinine 0.9 Creat Clearance w eGFR 59.09 Random Glucose 100 Calcium 9.0 Magnesium 2.2 Total Bilirubin 0.5 D AST 41 H D ALT 40 D Alkaline Phosphatase 115 D Creatine Kinase 87 Troponin I 3.88 H* Total Protein 6.4 Albumin 3.5 IMP: NSTEMI Hyponatremia likely hypovolemic hyponatremia in the setting of decreased PO intake Hypothyroidism Renal insufficiency, Cr elevated at 2. Unknown baseline. Likely prerenal HTN PLAN: -Will need Stress Mibi -ASA / Plavix -Statin -supplemental O2 -PO as tolerated -Cardiac telemetry monitoring Dr Padron Critical care time spent in reviewing chart, evaluating patient and formulating plan - 35 minutes.
[2017-01-20] MEDS ORDERED: oxyCODONE HCL 5 MG TABLET ONE (10:51)
--- NOTE | 2017-01-20 11:59 | PN ---
Progress Note, Physician History of Present Illness: Denies chest pain or dyspnea. - Current Medication List Current Medications: Active Medications Aspirin (Asa -) 81 mg PO DAILY [facility] Last Admin: 01/20/17 09:19 Dose: 81 mg Atorvastatin Calcium (Lipitor -) 40 mg PO HS [facility] Last Admin: 01/19/17 22:52 Dose: 40 mg Clopidogrel Bisulfate (Plavix -) 75 mg PO DAILY [facility] Last Admin: 01/20/17 09:19 Dose: 75 mg Heparin Sodium (Porcine) (Heparin -) 5,000 unit SQ BID [facility] Last Admin: 01/20/17 09:19 Dose: 5,000 unit Levothyroxine Sodium (Synthroid -) 100 mcg PO DAILY@0700 [facility] Last Admin: 01/20/17 06:48 Dose: 100 mcg Metoprolol Tartrate (Lopressor -) 25 mg PO BID [facility] Last Admin: 01/20/17 09:19 Dose: 25 mg - Objective Vital Signs: Vital Signs Temperature 98.6 F 01/20/17 06:00 Pulse Rate 67 01/20/17 10:00 Respiratory Rate 19 01/20/17 10:00 Blood Pressure 144/82 01/20/17 10:00 O2 Sat by Pulse Oximetry (%) 97 01/20/17 09:00 Constitutional: Yes: No Distress, Calm Neck: Yes: Supple Cardiovascular: Yes: Regular Rate and Rhythm Respiratory: Yes: Regular, CTA Bilaterally Gastrointestinal: Yes: Normal Bowel Sounds, Soft Edema: No Labs: CBC, BMP 01/19/17 05:00 01/20/17 05:00 INR, PTT INR 1.01 (0.82-1.09) 01/17/17 21:37 Problem List - Problems (1) HTN (hypertension) Code(s): I10 - ESSENTIAL (PRIMARY) HYPERTENSION (2) Coronary artery disease Code(s): I25.10 - ATHSCL HEART DISEASE OF [place] CORONARY ARTERY W/O ANG PCTRS Qualifiers: Coronary Disease-Associated Artery/Lesion type: [place] artery [place] vs. transplanted heart: [place] heart Associated angina: with unstable angina Qualified Code(s): I25.110 - Atherosclerotic heart disease of [place] coronary artery with unstable angina pectoris (3) Non-STEMI (non-ST elevated myocardial infarction) Code(s): I21.4 - NON-ST ELEVATION (NSTEMI) MYOCARDIAL INFARCTION (4) Hyperlipidemia Code(s): E78.5 - HYPERLIPIDEMIA, UNSPECIFIED Qualifiers: Hyperlipidemia type: pure hypercholesterolemia Qualified Code(s): E78.00 - Pure hypercholesterolemia, unspecified; E78.0 - Pure hypercholesterolemia (5) Hypothyroidism Code(s): E03.9 - HYPOTHYROIDISM, UNSPECIFIED Qualifiers: Hypothyroidism type: unspecified Qualified Code(s): E03.9 - Hypothyroidism, unspecified Assessment/Plan 01/18/2017 Echo: Mild cLVH, normal LV fxn, mild MR and TR 1. CAD post NSTEMI 2. Hyponatremia likely hypovolemic hyponatremia in the setting of decreased PO intake resolved 3. Hypothyroidism 4. Acute on CKD kidney injury (pre-renal) resolved 5. HTN/HCVD 6. Hyperlipidemia PLAN: 1. ASA 81 qd, Plavix 75 qd, Lopressor 25 bid, Lipitor 40 qd, check TSH and lipid panel 2. Trops downtrending, await pharmacologic stress testing to evaluate severity of CAD 3. DVT prophylaxis
[2017-01-20] MEDS ORDERED: QUINAPRIL HCL 5 MG TABLET (FP) PO ONE ×2 (17:44)
--- NOTE | 2017-01-20 17:49 | PN ---
Progress Note, Physician Chief Complaint: Patient has no complaints, no fever since admission, denies chest pain or palpitations. - Current Medication List Current Medications: Active Medications Aspirin (Asa -) 81 mg PO DAILY [facility] Last Admin: 01/20/17 09:19 Dose: 81 mg Atorvastatin Calcium (Lipitor -) 40 mg PO HS [facility] Last Admin: 01/19/17 22:52 Dose: 40 mg Clopidogrel Bisulfate (Plavix -) 75 mg PO DAILY [facility] Last Admin: 01/20/17 09:19 Dose: 75 mg Heparin Sodium (Porcine) (Heparin -) 5,000 unit SQ BID [facility] Last Admin: 01/20/17 09:19 Dose: 5,000 unit Levothyroxine Sodium (Synthroid -) 100 mcg PO DAILY@0700 [facility] Last Admin: 01/20/17 06:48 Dose: 100 mcg Metoprolol Tartrate (Lopressor -) 25 mg PO BID [facility] Last Admin: 01/20/17 09:19 Dose: 25 mg Quinapril HCl (Accupril -) 2.5 mg PO DAILY [facility] Quinapril HCl (Accupril -) 2.5 mg PO ONCE ONE Stop: 01/20/17 17:45 - Objective Vital Signs: Vital Signs Temperature 98.5 F 01/20/17 16:00 Pulse Rate 86 01/20/17 16:00 Respiratory Rate 20 01/20/17 16:00 Blood Pressure 147/83 01/20/17 16:00 O2 Sat by Pulse Oximetry (%) 97 01/20/17 09:00 Constitutional: Yes: No Distress, Calm Eyes: Yes: Conjunctiva Clear, EOM Intact HENT: Yes: Atraumatic, Normocephalic Neck: Yes: Supple, Trachea Midline Cardiovascular: Yes: Regular Rate and Rhythm, S1, S2 Respiratory: Yes: Regular, CTA Bilaterally Gastrointestinal: Yes: Normal Bowel Sounds, Soft, Abdomen, Obese Edema: No Peripheral Pulses WNL: Yes Neurological: Yes: Alert, Oriented Psychiatric: Yes: Alert, Oriented Labs: CBC, BMP 01/19/17 05:00 01/20/17 05:00 INR, PTT INR 1.01 (0.82-1.09) 01/17/17 21:37 Problem List - Problems (1) Acute ID Assessment/Plan: admitted to ICU cardiac enzymes in am EKG in am ECHO showing no motility defect, dilatation of the left atrium, LVH Code(s): I21.3 - ST ELEVATION (STEMI) MYOCARDIAL INFARCTION OF [facility] SITE Qualifiers: Myocardial infarction ST status: non-ST elevation myocardial infarction Qualified Code(s): I21.4 - Non-ST elevation (NSTEMI) myocardial infarction (2) HTN (hypertension) Assessment/Plan: developed hypotension while on Atenolol possibly due to fever or cardiac event\ will start short acting Metoprolol Code(s): I10 - ESSENTIAL (PRIMARY) HYPERTENSION (3) Hypothyroidism Assessment/Plan: increase Synthroid to 100 mcg daily Code(s): E03.9 - HYPOTHYROIDISM, UNSPECIFIED Qualifiers: Hypothyroidism type: unspecified Qualified Code(s): E03.9 - Hypothyroidism, unspecified (4) Hyperlipidemia Assessment/Plan: Lipitor 40 mg daily add fatty acids Code(s): E78.5 - HYPERLIPIDEMIA, UNSPECIFIED Qualifiers: Hyperlipidemia type: pure hypercholesterolemia Qualified Code(s): E78.00 - Pure hypercholesterolemia, unspecified; E78.0 - Pure hypercholesterolemia
[2017-01-20] MEDS: ATORVASTATIN CA 40 MG TABLET (FP) PO SCH (21:19)
[2017-01-21 06:38] LABS: ALBUMIN 2.7 g/dl (3.4-5.0); ANION GAP 3 (8-16); CALCIUM 8.4 mg/dL (8.5-10.1); CO2 29 mmol/L (21-32); CREATININE 0.7 mg/dL (0.55-1.02); GLUCOSE,RANDOM 90 mg/dL (74-106); SGOT/AST 23 U/L (15-37); SGPT/ALT 28 U/L (12-78)
[2017-01-21 06:40] LABS: ALK PHOS 95 U/L (45-117); BILIRUBIN,TOTAL 0.4 mg/dL (0.2-1.0); TOT PROT 5.2 g/dl (6.4-8.2)
[2017-01-21] MEDS: LEVOTHYROXINE NA 100 MCG TABLET (FP) PO SCH (06:40)
--- NOTE | 2017-01-21 08:14 | PN ---
Physical Exam: SUBJECTIVE: Patient seen and examined OBJECTIVE: Intake & Output 01/18/17 01/19/17 01/20/17 01/21/17 23:59 23:59 23:59 23:59 Intake Total 048 172 7250 Output Total 1750 Balance -789 922 7141 Weight 64.949 kg 62.227 kg 62.9 kg 63.276 kg Vital Signs Period Temp Pulse Resp BP Sys/Gerber Pulse Ox Last 24 Hr 98.2 F-98.6 F 67-86 15-22 126-151/63-83 97-97 GENERAL: The patient is awake, alert, and fully oriented, in no acute distress. HEAD: Normal with no signs of trauma. EYES: PERRL, extraocular movements intact, sclera anicteric, conjunctiva clear. No ptosis. ENT: Ears normal, nares patent, oropharynx clear without exudates, moist mucous membranes. NECK: Trachea midline, full range of motion, supple. LUNGS: Breath sounds equal, clear to auscultation bilaterally, no wheezes, no crackles, no accessory muscle use. HEART: Regular rate and rhythm, S1, S2 without murmur, rub or gallop. ABDOMEN: Soft, nontender, nondistended, normoactive bowel sounds, no guarding, no rebound, no hepatosplenomegaly, no masses. EXTREMITIES: 2+ pulses, warm, well-perfused, no edema. NEUROLOGICAL: Cranial nerves II through XII grossly intact. Normal speech, gait not observed. PSYCH: Normal mood, normal affect. SKIN: Warm, dry, normal turgor, no rashes or lesions noted Laboratory Results - last 24 hr 01/21/17 05:00 Sodium 141 Potassium 4.0 Chloride 109 H Carbon Dioxide 29 Anion Gap 3 L BUN 17 Creatinine 0.7 D Creat Clearance w eGFR > 60 Random Glucose 90 Calcium 8.4 L Total Bilirubin 0.4 AST 23 D ALT 28 D Alkaline Phosphatase 95 Total Protein 5.2 L Albumin 2.7 L D Active Medications Generic Name Dose Route Start Last Admin Trade Name Freq PRN Reason Stop Dose Admin Aspirin 81 mg 01/18/17 10:00 01/20/17 09:19 Asa - PO 81 mg DAILY [facility] Administration Atorvastatin Calcium 40 mg 01/19/17 22:00 01/20/17 21:19 Lipitor - PO 40 mg HS [facility] Administration Clopidogrel Bisulfate 75 mg 01/18/17 15:15 01/20/17 09:19 Plavix - PO 75 mg DAILY [facility] Administration Heparin Sodium (Porcine) 5,000 unit 01/18/17 02:30 01/20/17 21:19 Heparin - SQ 5,000 unit BID [facility] Administration Levothyroxine Sodium 100 mcg 01/20/17 07:00 01/21/17 06:40 Synthroid - PO Not Given DAILY@0700 [facility]ES [facility] Metoprolol Tartrate 25 mg 01/18/17 10:00 01/20/17 21:19 Lopressor - PO 25 mg BID [facility] Administration Quinapril HCl 2.5 mg 01/21/17 10:00 Accupril - PO DAILY [facility]CLUDES [facility] ASSESSMENT/PLAN: I PLAN: Cardiovascular - NSTEMI -follow up this morning's Stress Testing -ASA / Plavix -Statin Renal - Hyponatremia, Prerenal - Corrected -supplemental O2 -PO as tolerated DISPO: -Cardiac telemetry monitoring Visit type - Emergency Visit Emergency Visit: No - New Patient This patient is new to me today: No - Critical Care Critical Care patient: Yes Total Critical Care Time (in minutes): 30 Critical Care Statement: The care of this patient involved high complexity decision making to prevent further life threatening deterioration of the patient 's condition and/or to evaluate & treat vital organ system(s) failure or risk of failure.
--- NOTE | 2017-01-21 09:03 | PN ---
Progress Note, Physician History of Present Illness: Denies chest pain or dyspnea. - Current Medication List Current Medications: Active Medications Aspirin (Asa -) 81 mg PO DAILY [facility] Last Admin: 01/20/17 09:19 Dose: 81 mg Atorvastatin Calcium (Lipitor -) 40 mg PO HS [facility] Last Admin: 01/20/17 21:19 Dose: 40 mg Clopidogrel Bisulfate (Plavix -) 75 mg PO DAILY [facility] Last Admin: 01/20/17 09:19 Dose: 75 mg Heparin Sodium (Porcine) (Heparin -) 5,000 unit SQ BID [facility] Last Admin: 01/20/17 21:19 Dose: 5,000 unit Levothyroxine Sodium (Synthroid -) 100 mcg PO DAILY@0700 [facility] Last Admin: 01/21/17 06:40 Dose: Not Given Metoprolol Tartrate (Lopressor -) 25 mg PO BID [facility] Last Admin: 01/20/17 21:19 Dose: 25 mg Quinapril HCl (Accupril -) 2.5 mg PO DAILY [facility] - Objective Vital Signs: Vital Signs Temperature 98.2 F 01/21/17 06:00 Pulse Rate 88 01/21/17 08:00 Respiratory Rate 20 01/21/17 08:00 Blood Pressure 151/73 01/21/17 08:00 O2 Sat by Pulse Oximetry (%) 97 01/21/17 07:37 Constitutional: Yes: No Distress, Calm Neck: Yes: Supple Cardiovascular: Yes: Regular Rate and Rhythm Respiratory: Yes: Regular, CTA Bilaterally Gastrointestinal: Yes: Normal Bowel Sounds, Soft Edema: No Labs: CBC, BMP 01/19/17 05:00 01/21/17 05:00 INR, PTT INR 1.01 (0.82-1.09) 01/17/17 21:37 Problem List - Problems (1) HTN (hypertension) Code(s): I10 - ESSENTIAL (PRIMARY) HYPERTENSION (2) Coronary artery disease Code(s): I25.10 - ATHSCL HEART DISEASE OF [place] CORONARY ARTERY W/O ANG PCTRS Qualifiers: Coronary Disease-Associated Artery/Lesion type: [place] artery [place] vs. transplanted heart: [place] heart Associated angina: with unstable angina Qualified Code(s): I25.110 - Atherosclerotic heart disease of [place] coronary artery with unstable angina pectoris (3) Non-STEMI (non-ST elevated myocardial infarction) Code(s): I21.4 - NON-ST ELEVATION (NSTEMI) MYOCARDIAL INFARCTION (4) Hyperlipidemia Code(s): E78.5 - HYPERLIPIDEMIA, UNSPECIFIED Qualifiers: Hyperlipidemia type: pure hypercholesterolemia Qualified Code(s): E78.00 - Pure hypercholesterolemia, unspecified; E78.0 - Pure hypercholesterolemia (5) Hypothyroidism Code(s): E03.9 - HYPOTHYROIDISM, UNSPECIFIED Qualifiers: Hypothyroidism type: unspecified Qualified Code(s): E03.9 - Hypothyroidism, unspecified Assessment/Plan 01/18/2017 Echo: Mild cLVH, normal LV fxn, mild MR and TR 1. CAD post NSTEMI 2. Hyponatremia likely hypovolemic hyponatremia in the setting of decreased PO intake resolved 3. Hypothyroidism 4. Acute on CKD kidney injury (pre-renal) resolved 5. HTN/HCVD 6. Hyperlipidemia PLAN: 1. ASA 81 qd, Plavix 75 qd, Lopressor 25 bid, Lipitor 40 qd, Accupril 2.5 qd with uptitration as tolerated 2. Trops downtrending, await pharmacologic stress testing to evaluate severity of CAD 3. DVT prophylaxis
[2017-01-21] MEDS ORDERED: QUINAPRIL HCL 5 MG TABLET (FP) PO SCH (10:00)
[2017-01-21] MEDS ORDERED: WATER IVPB ONE (10:00)
[2017-01-21] MEDS ORDERED: DEXTROSE 5% IVPB ONE (10:00)
[2017-01-21] MEDS ORDERED: DIPYRIDAMOLE STRESS TEST IVPB ONE (10:00)
--- NOTE | 2017-01-21 12:21 | PN ---
Teaching Attending Note Name of Resident: Tej Pereyra ATTENDING PHYSICIAN STATEMENT I saw and evaluated the patient. I reviewed the resident's note and discussed the case with the resident. I agree with the resident's findings and plan as documented. SUBJECTIVE: Patient seen and examined in the ICU. Awake and alert. Denies CP or SOB. For stress test. OBJECTIVE: Intake & Output 01/18/17 01/19/17 01/20/17 01/21/17 23:59 23:59 23:59 23:59 Intake Total 270 688 3496 Output Total 1750 Balance -545 547 9090 Weight 143 lb 3 oz 137 lb 3 oz 138 lb 10.732 oz 139 lb 8 oz Last Vital Signs Temp Pulse Resp BP Pulse Ox 98.2 F 88 20 151/73 97 01/21/17 06:00 01/21/17 08:00 01/21/17 08:00 01/21/17 08:00 01/21/17 07:37 Active Medications Aspirin (Asa -) 81 mg PO DAILY [facility] Last Admin: 01/20/17 09:19 Dose: 81 mg Atorvastatin Calcium (Lipitor -) 40 mg PO HS [facility] Last Admin: 01/20/17 21:19 Dose: 40 mg Clopidogrel Bisulfate (Plavix -) 75 mg PO DAILY [facility] Last Admin: 01/20/17 09:19 Dose: 75 mg Heparin Sodium (Porcine) (Heparin -) 5,000 unit SQ BID [facility] Last Admin: 01/20/17 21:19 Dose: 5,000 unit Levothyroxine Sodium (Synthroid -) 100 mcg PO DAILY@0700 [facility] Last Admin: 01/21/17 06:40 Dose: Not Given Metoprolol Tartrate (Lopressor -) 25 mg PO BID [facility] Last Admin: 01/20/17 21:19 Dose: 25 mg Quinapril HCl (Accupril -) 2.5 mg PO DAILY [facility] GENERAL: awake, alert, and fully oriented, in no acute distress. HEAD: Normal with no signs of trauma. EYES: sclera anicteric, conjunctiva clear. No ptosis. ENT: Ears normal, nares patent, oropharynx clear without exudates, moist mucous membranes. NECK: Trachea midline, full range of motion, supple. LUNGS: Breath sounds equal, clear to auscultation bilaterally, no wheezes, no crackles, no accessory muscle use. HEART: Regular rate and rhythm, S1, S2 without murmur, rub or gallop. ABDOMEN: Soft, nontender, nondistended, normoactive bowel sounds, no guarding, no rebound, no hepatosplenomegaly, no masses. EXTREMITIES: 2+ pulses, warm, well-perfused, no edema. NEUROLOGICAL: AAO, Non-focal PSYCH: Normal mood, normal affect. SKIN: Warm, dry, normal turgor, no rashes or lesions noted Laboratory Results - last 24 hr 01/21/17 05:00 Sodium 141 Potassium 4.0 Chloride 109 H Carbon Dioxide 29 Anion Gap 3 L BUN 17 Creatinine 0.7 D Creat Clearance w eGFR > 60 Random Glucose 90 Calcium 8.4 L Total Bilirubin 0.4 AST 23 D ALT 28 D Alkaline Phosphatase 95 Total Protein 5.2 L Albumin 2.7 L D IMP: NSTEMI Hyponatremia likely hypovolemic hyponatremia in the setting of decreased PO intake Hypothyroidism Renal insufficiency, Cr elevated at 2. Unknown baseline. Likely prerenal HTN PLAN: -Stress Testing -ASA / Plavix -Statin -supplemental O2 -PO as tolerated -Cardiac telemetry monitoring Dr Padron
[2017-01-21] MEDS ORDERED: PT OWN MED DRAWER 7, Y5N ONE (12:42)
[2017-01-21] MEDS: ASPIRIN 81 MG CHEWABLE TABLETS PO SCH (12:48)
[2017-01-21] MEDS: QUINAPRIL HCL 5 MG TABLET (FP) PO SCH (12:48)
[2017-01-21] MEDS: CLOPIDOGREL BISULFATE 75 MG TABLET (FP) PO SCH (12:49)
[2017-01-21] MEDS: METOPROLOL TARTRATE 25 MG TABLET (FP) PO SCH ×2 (12:49→21:30)
[2017-01-21] MEDS: HEPARIN NA (PORCINE) 5,000 UNITS/ML 1ML VIAL SQ SCH ×2 (13:28→21:30)
--- NOTE | 2017-01-21 13:50 | EKG ---
Test Reason : Blood Pressure : / mmHG Vent. Rate : 094 BPM Atrial Rate : 094 BPM P-R Int : 210 ms QRS Dur : 084 ms QT Int : 356 ms P-R-T Axes : 041 -12 088 degrees QTc Int : 445 ms SINUS RHYTHM WITH 1ST DEGREE A-V BLOCK WITH OCCASIONAL PREMATURE VENTRICULAR COMPLEXES AND PREMATURE ATRIAL COMPLEXES LEFT VENTRICULAR HYPERTROPHY WITH REPOLARIZATION ABNORMALITY INFERIOR INFARCT (CITED ON OR BEFORE 17-JAN-2017) ABNORMAL ECG WHEN COMPARED WITH ECG OF 20-JAN-2017 08:56, PREMATURE ATRIAL COMPLEXES ARE NOW PRESENT Confirmed by COLTON LECHUGA, BETHANY ([id number]) on 01/21/2017 1:50:03 PM Referred By: Scott MEEK Confirmed By:BETHANY SEGURA MD
--- NOTE | 2017-01-21 14:01 | EKG ---
Test Reason : Blood Pressure : / mmHG Vent. Rate : 085 BPM Atrial Rate : 085 BPM P-R Int : 216 ms QRS Dur : 080 ms QT Int : 386 ms P-R-T Axes : 048 -03 073 degrees QTc Int : 459 ms SINUS RHYTHM WITH 1ST DEGREE A-V BLOCK WITH OCCASIONAL PREMATURE VENTRICULAR COMPLEXES LEFT VENTRICULAR HYPERTROPHY WITH REPOLARIZATION ABNORMALITY INFERIOR INFARCT (CITED ON OR BEFORE 17-JAN-2017) ABNORMAL ECG WHEN COMPARED WITH ECG OF 18-JAN-2017 08:23, PREMATURE VENTRICULAR COMPLEXES ARE NOW PRESENT Confirmed by BETHANY SEGURA MD ([id number]) on 01/21/2017 2:01:19 PM Referred By: JAVIER EMEK Confirmed By:BETHANY SEGURA MD
--- NOTE | 2017-01-21 19:27 | PN ---
Progress Note, Physician Chief Complaint: Patient has no complaints, no fever since admission, denies chest pain or palpitations. A stress test was done today. Results are available. History of Present Illness: 86 yo female admitted for acute RI - Current Medication List Current Medications: Active Medications Aspirin (Asa -) 81 mg PO DAILY [facility] Last Admin: 01/21/17 12:48 Dose: 81 mg Atorvastatin Calcium (Lipitor -) 40 mg PO HS [facility] Last Admin: 01/20/17 21:19 Dose: 40 mg Bacitracin (Bacitracin -) 1 applic TP DAILY [facility] Clopidogrel Bisulfate (Plavix -) 75 mg PO DAILY [facility] Last Admin: 01/21/17 12:49 Dose: 75 mg Heparin Sodium (Porcine) (Heparin -) 5,000 unit SQ BID [facility] Last Admin: 01/21/17 13:28 Dose: 5,000 unit Levothyroxine Sodium (Synthroid -) 100 mcg PO DAILY@0700 [facility] Last Admin: 01/21/17 06:40 Dose: Not Given Metoprolol Tartrate (Lopressor -) 25 mg PO BID [facility] Last Admin: 01/21/17 12:49 Dose: 25 mg Quinapril HCl (Accupril -) 2.5 mg PO DAILY [facility] Last Admin: 01/21/17 12:48 Dose: 2.5 mg - Objective Vital Signs: Vital Signs Temperature 98.4 F 01/21/17 16:00 Pulse Rate 74 01/21/17 16:00 Respiratory Rate 22 01/21/17 16:00 Blood Pressure 101/60 01/21/17 16:00 O2 Sat by Pulse Oximetry (%) 97 01/21/17 07:37 Constitutional: Yes: No Distress, Calm Eyes: Yes: Conjunctiva Clear, EOM Intact HENT: Yes: Atraumatic, Normocephalic Neck: Yes: Supple, Trachea Midline Cardiovascular: Yes: Regular Rate and Rhythm, S1, S2 Respiratory: Yes: Regular, CTA Bilaterally Gastrointestinal: Yes: Normal Bowel Sounds, Soft Genitourinary: Yes: WNL Musculoskeletal: Yes: WNL Extremities: Yes: Other (Right hand 3rd and 4th finger sutured laceration sare present.Left elbow excoriation present.) Edema: No Integumentary: Yes: Other (laceration of the right 3rd and 4th fingers, laceration of the left elbow) Neurological: Yes: Alert, Oriented Psychiatric: Yes: Alert, Oriented Labs: CBC, BMP 01/19/17 05:00 01/21/17 05:00 INR, PTT INR 1.01 (0.82-1.09) 01/17/17 21:37 - ....Imaging EKG: Other (no acute changes) Problem List - Problems (1) Acute RI Assessment/Plan: had persantin stress test today which showed fixed apical defect consistent with attenuation cardiac enzymes in am to document down trend added Plavix discharge planning in am VNS at home, physical therapy evaluation in am Code(s): I21.3 - ST ELEVATION (STEMI) MYOCARDIAL INFARCTION OF [facility] SITE Qualifiers: Myocardial infarction ST status: non-ST elevation myocardial infarction Qualified Code(s): I21.4 - Non-ST elevation (NSTEMI) myocardial infarction (2) HTN (hypertension) Assessment/Plan: started short acting Metoprolol added Accupril and tolerating well Code(s): I10 - ESSENTIAL (PRIMARY) HYPERTENSION (3) Hypothyroidism Assessment/Plan: increase Synthroid to 100 mcg daily Code(s): E03.9 - HYPOTHYROIDISM, UNSPECIFIED Qualifiers: Hypothyroidism type: unspecified Qualified Code(s): E03.9 - Hypothyroidism, unspecified (4) Hyperlipidemia Assessment/Plan: Lipitor 40 mg daily add omega 3 Code(s): E78.5 - HYPERLIPIDEMIA, UNSPECIFIED Qualifiers: Hyperlipidemia type: pure hypercholesterolemia Qualified Code(s): E78.00 - Pure hypercholesterolemia, unspecified; E78.0 - Pure hypercholesterolemia (5) Laceration of blood vessel of left middle finger, subsequent encounter Code(s): S65.513D - LACERATION OF BLOOD VESSEL OF LEFT MIDDLE FINGER, SUBS (6) Laceration of blood vessel of right middle finger Assessment/Plan: applications of Bacitracin and sterile gauze daily Code(s): S65.512A - LACERATION OF BLOOD VESSEL OF RIGHT MIDDLE FINGER, INIT
[2017-01-21] MEDS: BACITRACIN 15 GM TUBE TOPICAL OINTMENT TP SCH (20:15)
[2017-01-21] MEDS: ATORVASTATIN CA 40 MG TABLET (FP) PO SCH (21:30)
[2017-01-22] MEDS: LEVOTHYROXINE NA 100 MCG TABLET (FP) PO SCH (06:13)
[2017-01-22 07:53] LABS: MCH 30.6 pg (25.7-33.7); MCHC 32.7 g/dl (32.0-36.0); MEAN CELL VOLUME 93.5 fl (80-96); PLATELET COUNT 306 K/MM3 (134-434); RDW 13.5 % (11.6-15.6); WHITE BLOOD COUNT 5.5 K/mm3 (4.0-10.0)
[2017-01-22 08:20] LABS: ALK PHOS 103 U/L (45-117); ANION GAP 6 (8-16); BILIRUBIN,TOTAL 0.5 mg/dL (0.2-1.0); CO2 29 mmol/L (21-32); CREATININE 0.8 mg/dL (0.55-1.02); GLUCOSE,RANDOM 83 mg/dL (74-106); SGOT/AST 22 U/L (15-37); SGPT/ALT 28 U/L (12-78); TOT PROT 5.6 g/dl (6.4-8.2)
[2017-01-22 08:45] LABS: CPK 44 IU/L (26-192)
[2017-01-22 08:50] LABS: TROPONIN I 1.13 ng/ml (0.00-0.05)
[2017-01-22] MEDS: HEPARIN NA (PORCINE) 5,000 UNITS/ML 1ML VIAL SQ SCH (09:14)
[2017-01-22] MEDS: ASPIRIN 81 MG CHEWABLE TABLETS PO SCH (09:14)
[2017-01-22] MEDS: METOPROLOL TARTRATE 25 MG TABLET (FP) PO SCH (09:15)
[2017-01-22] MEDS: CLOPIDOGREL BISULFATE 75 MG TABLET (FP) PO SCH (09:15)
[2017-01-22] MEDS: BACITRACIN 15 GM TUBE TOPICAL OINTMENT TP SCH (09:15)
[2017-01-22] MEDS: QUINAPRIL HCL 5 MG TABLET (FP) PO SCH (09:15)
--- NOTE | 2017-01-22 10:37 | PN ---
Progress Note, Physician Chief Complaint: Events noted Not in distress History of Present Illness: Patient was seen and examined. Awake and alert. Chart was reviewed Denies chest pain, SOB or palpitations Nuclear myocardial perfusion reveals small inferobasal fixed c/w attenuation and LVEF 79% Troponin trending down - Current Medication List Current Medications: Active Medications Aspirin (Asa -) 81 mg PO DAILY [facility] Last Admin: 01/22/17 09:14 Dose: 81 mg Atorvastatin Calcium (Lipitor -) 40 mg PO HS [facility] Last Admin: 01/21/17 21:30 Dose: 40 mg Bacitracin (Bacitracin -) 1 applic TP DAILY [facility] Last Admin: 01/22/17 09:15 Dose: 1 applic Clopidogrel Bisulfate (Plavix -) 75 mg PO DAILY [facility] Last Admin: 01/22/17 09:15 Dose: 75 mg Heparin Sodium (Porcine) (Heparin -) 5,000 unit SQ BID [facility] Last Admin: 01/22/17 09:14 Dose: 5,000 unit Levothyroxine Sodium (Synthroid -) 100 mcg PO DAILY@0700 [facility] Last Admin: 01/22/17 06:13 Dose: 100 mcg Metoprolol Tartrate (Lopressor -) 25 mg PO BID [facility] Last Admin: 01/22/17 09:15 Dose: 25 mg Quinapril HCl (Accupril -) 2.5 mg PO DAILY [facility] Last Admin: 01/22/17 09:15 Dose: 2.5 mg - Objective Vital Signs: Vital Signs Temperature 98.1 F 01/22/17 06:00 Pulse Rate 82 01/22/17 06:00 Respiratory Rate 18 01/22/17 06:00 Blood Pressure 150/75 01/22/17 06:00 O2 Sat by Pulse Oximetry (%) 97 01/22/17 06:00 Neck: Yes: Supple Cardiovascular: Yes: Regular Rate and Rhythm, S1, S2 Respiratory: Yes: CTA Bilaterally Gastrointestinal: Yes: Normal Bowel Sounds, Soft. No: Tenderness Edema: No Additional Findings/Remarks: - Review of Systems Constitutional: denies: Chills, Fever Cardiovascular: denies: Chest Pain, Palpitations, Shortness of Breath Respiratory: denies: Cough, Hemoptysis, Orthopnea, PND, SOB, SOB on Exertion, Wheezing Gastrointestinal: denies: Abdominal Pain, Constipation, Diarrhea, Melena, Nausea , Rectal Bleeding, Vomiting Genitourinary: denies: Dysuria Musculoskeletal: denies: Back Pain. denies: Joint Pain Neurological: denies: Dizziness, Headache, Numbness, Seizure, Syncope, Weakness Labs: CBC, BMP 01/22/17 05:35 01/22/17 05:35 Problem List - Problems (1) Coronary artery disease Code(s): I25.10 - ATHSCL HEART DISEASE OF [place] CORONARY ARTERY W/O ANG PCTRS Qualifiers: Coronary Disease-Associated Artery/Lesion type: [place] artery [place] vs. transplanted heart: [place] heart Associated angina: with unstable angina Qualified Code(s): I25.110 - Atherosclerotic heart disease of [place] coronary artery with unstable angina pectoris (2) HTN (hypertension) Code(s): I10 - ESSENTIAL (PRIMARY) HYPERTENSION Qualifiers: Hypertension type: essential hypertension Qualified Code(s): I10 - Essential (primary) hypertension (3) Hyperlipidemia Code(s): E78.5 - HYPERLIPIDEMIA, UNSPECIFIED Qualifiers: Hyperlipidemia type: pure hypercholesterolemia Qualified Code(s): E78.00 - Pure hypercholesterolemia, unspecified; E78.0 - Pure hypercholesterolemia (4) Hypothyroidism Code(s): E03.9 - HYPOTHYROIDISM, UNSPECIFIED Qualifiers: Hypothyroidism type: unspecified Qualified Code(s): E03.9 - Hypothyroidism, unspecified (5) Non-STEMI (non-ST elevated myocardial infarction) Code(s): I21.4 - NON-ST ELEVATION (NSTEMI) MYOCARDIAL INFARCTION Assessment/Plan 1. CAD post NSTEMI - troponin trending down 2. Hyponatremia likely hypovolemic hyponatremia in the setting of decreased PO intake - improved 3. Hypothyroidism 4. Acute on CKD kidney injury (pre-renal) resolved 5. HTN/HCVD 6. Hyperlipidemia PLAN: 1. ASA 81 mg qd, Plavix 75 mg qd, Lopressor 25 mg bid, Lipitor 40 mg qd and Accupril 2.5 mg qd with uptitration as tolerated 2. Pharmacologic stress test report reviewed. Continue to optimize medical therapy 3. DVT prophylaxis 4. Trend troponin Further plans are to follow Lion Matute MD
--- NOTE | 2017-01-22 15:23 | PN ---
Progress Note, Physician Chief Complaint: Patient has no complaints, no fever since admission, denies chest pain or palpitations. History of Present Illness: 86 yo female admitted for acute ND - Current Medication List Current Medications: Active Medications Aspirin (Asa -) 81 mg PO DAILY [facility] Last Admin: 01/22/17 09:14 Dose: 81 mg Atorvastatin Calcium (Lipitor -) 40 mg PO HS [facility] Last Admin: 01/21/17 21:30 Dose: 40 mg Bacitracin (Bacitracin -) 1 applic TP DAILY [facility] Last Admin: 01/22/17 09:15 Dose: 1 applic Clopidogrel Bisulfate (Plavix -) 75 mg PO DAILY [facility] Last Admin: 01/22/17 09:15 Dose: 75 mg Heparin Sodium (Porcine) (Heparin -) 5,000 unit SQ BID [facility] Last Admin: 01/22/17 09:14 Dose: 5,000 unit Levothyroxine Sodium (Synthroid -) 100 mcg PO DAILY@0700 [facility] Last Admin: 01/22/17 06:13 Dose: 100 mcg Metoprolol Tartrate (Lopressor -) 25 mg PO BID [facility] Last Admin: 01/22/17 09:15 Dose: 25 mg Quinapril HCl (Accupril -) 2.5 mg PO DAILY [facility] Last Admin: 01/22/17 09:15 Dose: 2.5 mg - Objective Vital Signs: Vital Signs Temperature 98 F 01/22/17 10:00 Pulse Rate 80 01/22/17 10:00 Respiratory Rate 200 H 01/22/17 10:00 Blood Pressure 143/90 01/22/17 10:00 O2 Sat by Pulse Oximetry (%) 98 01/22/17 09:00 Constitutional: Yes: No Distress, Calm Eyes: Yes: Conjunctiva Clear, EOM Intact HENT: Yes: Atraumatic, Normocephalic Neck: Yes: Supple, Trachea Midline Cardiovascular: Yes: Regular Rate and Rhythm, S1, S2 Respiratory: Yes: Regular, CTA Bilaterally Gastrointestinal: Yes: Normal Bowel Sounds, Soft, Abdomen, Obese. No: Hepatomegaly, Splenomegaly ...Rectal Exam: Yes: Deferred Edema: No Peripheral Pulses WNL: Yes Wound/Incision: Yes: Well Approximated Neurological: Yes: Alert, Oriented Labs: CBC, BMP 01/22/17 05:35 01/22/17 05:35 INR, PTT INR 1.01 (0.82-1.09) 01/17/17 21:37 Problem List - Problems (1) Acute ND Assessment/Plan: admitted to ICU cardiac enzymes in am EKG in am ECHO showing no motility defect, dilatation of the left atrium, LVH Code(s): I21.3 - ST ELEVATION (STEMI) MYOCARDIAL INFARCTION OF [facility] SITE Qualifiers: Myocardial infarction ST status: non-ST elevation myocardial infarction Qualified Code(s): I21.4 - Non-ST elevation (NSTEMI) myocardial infarction (2) HTN (hypertension) Assessment/Plan: developed hypotension while on Atenolol possibly due to fever or cardiac event\ will start short acting Metoprolol Code(s): I10 - ESSENTIAL (PRIMARY) HYPERTENSION Qualifiers: Hypertension type: essential hypertension Qualified Code(s): I10 - Essential (primary) hypertension (3) Hypothyroidism Assessment/Plan: increase Synthroid to 100 mcg daily Code(s): E03.9 - HYPOTHYROIDISM, UNSPECIFIED Qualifiers: Hypothyroidism type: unspecified Qualified Code(s): E03.9 - Hypothyroidism, unspecified (4) Hyperlipidemia Assessment/Plan: Lipitor 40 mg daily add fatty acids Code(s): E78.5 - HYPERLIPIDEMIA, UNSPECIFIED Qualifiers: Hyperlipidemia type: pure hypercholesterolemia Qualified Code(s): E78.00 - Pure hypercholesterolemia, unspecified; E78.0 - Pure hypercholesterolemia (5) Laceration of blood vessel of left middle finger, subsequent encounter Code(s): S65.513D - LACERATION OF BLOOD VESSEL OF LEFT MIDDLE FINGER, SUBS (6) Laceration of blood vessel of right middle finger Assessment/Plan: applications of Bacitracin and sterile gauze daily Code(s): S65.512A - LACERATION OF BLOOD VESSEL OF RIGHT MIDDLE FINGER, INIT
[2017-01-22 15:49] VITALS: BP 123/74; PULSE 74; TEMP 98.1
== END 2017-01-22 18:21 | disposition home or self-care (01) | DRG 281 ==
LOC: FER 19:08 → JICU 23:40 → J4W 01-21 15:57
PROVIDERS: ADMIT Internal Medicine; ATTEND Internal Medicine
PROC: 0HQFXZZ Repair Right Hand Skin, External Approach (ICD-10-PCS; principal; 2017-01-17)
DX: I21.4 Non-ST elevation (NSTEMI) myocardial infarction (principal); E87.1 Hypo-osmolality and hyponatremia; N17.9 Acute kidney failure, unspecified; Z87.891 Personal history of nicotine dependence; S61.212A Laceration without foreign body of right middle finger without damage to nail, initial encounter; S61.213A Laceration without foreign body of left middle finger without damage to nail, initial encounter; R50.9 Fever, unspecified; I12.9 Hypertensive chronic kidney disease with stage 1 through stage 4 chronic kidney disease, or unspecified chronic kidney disease; E03.9 Hypothyroidism, unspecified; N18.9 Chronic kidney disease, unspecified; W19.XXXA Unspecified fall, initial encounter; Y93.89 Activity, other specified; Y92.89 Other specified places as the place of occurrence of the external cause; Y99.8 Other external cause status
CPT/HCPCS: 36415; 70450-TC; 71010-TC; 73070-TC-LT; 73140-TC-RT; 78452-TC; 80048; 80053; 80061; 82553; 83721; 83735; 84443; 84484; 85025; 85027; 85610; 85730; 90670; 93005; 93010; 93017; 93306-TC; 97116-GP; 97161-GP; 99283-25; A9502; J1644